=== PATIENT | female | born 1945 | race Caucasian/White ===

== ENCOUNTER 2023-03-19 08:08 | Day surgery (SDC) | payer MEDICARE, OTHER ==
[2023-03-19] MEDS: Lactated Ringers 1,000 ML IV SCH (08:23)
[2023-03-19] MEDS ORDERED: Propofol 200 MG/20 ML SDV ONE ×2 (10:02→10:37)
[2023-03-19] MEDS ORDERED: fentaNYL 100 MCG/2 ML SDV ONE (10:02)
== END 2023-03-19 12:08 | disposition home or self-care (01) ==
LOC: VM.SDS 08:08
PROVIDERS: ATTEND Family Medicine
DX: Z12.11 Encounter for screening for malignant neoplasm of colon (principal); D12.0 Benign neoplasm of cecum; D12.6 Benign neoplasm of colon, unspecified; D12.2 Benign neoplasm of ascending colon; D12.3 Benign neoplasm of transverse colon; K57.30 Diverticulosis of large intestine without perforation or abscess without bleeding; I10 Essential (primary) hypertension; E78.5 Hyperlipidemia, unspecified; M81.0 Age-related osteoporosis without current pathological fracture; K21.9 Gastro-esophageal reflux disease without esophagitis; Z79.899 Other long term (current) drug therapy; Z79.82 Long term (current) use of aspirin
CPT/HCPCS: 00811; 88305; J2704; J3010; J7120